=== PATIENT | female | born 1950 | race Caucasian/White ===

== ENCOUNTER 2018-01-01 20:39 | Emergency (ER) | payer MEDICARE, OTHER ==
[~2018-01-01] VITALS: Ht 160 cm; Wt 65.8 kg
[2018-01-01] MEDS ORDERED: SYNTHROID100 MC1 PO (20:47)
[2018-01-01 21:23] LABS: ABSOLUTE EOSINOPHILS 0.1 thou/uL (0.0-0.7); ABSOLUTE LYMPHOCYTES 1.6 thou/uL (0.8-5.3); ABSOLUTE MONOCYTES 0.5 thou/uL (0.0-1.2); ABSOLUTE NEUTROPHILS 5.4 thou/uL (1.6-8.1); BASOPHILS 0.5 %; EOSINOPHILS 1.2 %; HEMATOCRIT 39.7 % (37.0-47.0); HEMOGLOBIN 13.3 gm/dL (12.0-15.0); LYMPHOCYTES 20.8 %; MCH 30.4 pg (26.0-34.0); MCHC 33.6 g/dL (28.0-37.0); MCV 90.5 fL (80.0-100.0); MONOCYTES 6.8 %; MPV 9.4 fl. (7.2-11.1); NUCLEATED RBCS 0 /100WBC; PLATELET COUNT* 191 thou/uL (150-400); POLYS 70.7 %; RBC 4.38 mil/uL (4.20-5.00); RDW-CV 13.1 % (10.5-14.5); WBC 7.6 thou/uL (4.0-11.0)
[2018-01-01 21:30] LABS: ANION GAP 8 mmol/L (7-16); BUN 13 mg/dL (7-18); CALCIUM 9.8 mg/dL (8.5-10.1); CHLORIDE 102 mmol/L (98-107); CO2 31 mmol/L (21-32); CREATININE 0.8 mg/dL (0.6-1.3); GLUCOSE 118 mg/dL (70-99); POTASSIUM 3.5 mmol/L (3.5-5.1); SODIUM 141 mmol/L (136-145)
[2018-01-01 21:32] LABS: URINE BILIRUBIN NEGATIVE (Negative); URINE BLOOD NEGATIVE (Negative); URINE CLARITY CLEAR; URINE COLOR YELLOW; URINE GLUCOSE-RANDOM NEGATIVE (Negative); URINE KETONES NEGATIVE (Negative); URINE LEUKOCYTES 2+ (Negative); URINE NITRITE NEGATIVE (Negative); URINE PROTEIN NEGATIVE (Negative); URINE UROBILINOGEN 0.2 E.U./dl (0.2-1.0)
[2018-01-01 21:37] LABS: SQUAMOUS 0-3 Few /LPF (0-3); URINE RBC 3-10 Few /HPF (0-2); WBC CLUMPS Few (None Seen)
[2018-01-01 21:38] LABS: BACTERIA >30 Many /HPF (None Seen); CASTS None Seen /LPF (None Seen); CRYSTALS None Seen /LPF (None Seen); MUCUS 0-3 Light strn/LPF (None Seen)
[2018-01-01 21:40] LABS: ALKALINE PHOSPHATASE 43 U/L (46-116); LIPASE 114 U/L (73-393); SGOT 19 U/L (15-37); SGPT 23 U/L (30-65); TOTAL BILIRUBIN 0.2 mg/dL (<0.1-1.0); TOTAL PROTEIN 7.7 g/dL (6.4-8.2); TROPONIN-I LEVEL <0.06 ng/mL (<0.06)
[2018-01-01] MEDS ORDERED: ONDANSETRON HCL4 M2 PO (23:03)
[2018-01-01] MEDS ORDERED: NABUMETONE 750750 M1 PO (23:03)
[2018-01-01] MEDS ORDERED: NORCO 5-325 TA1 EACH PO (23:03)
[2018-01-01] MEDS ORDERED: MACROBID 100 M100 M2 PO (23:06)
[2018-01-01 23:25] VITALS: BP 119/76
--- NOTE | 2018-01-02 10:20 | EKG ---
[place] [address] ELECTROCARDIOGRAM REPORT Name: HARIKA FERRER Room: 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: : 1950 Requested By: Desiree Askew Order Number: [id number] MD: Dewey Crane Measurements Intervals [place] Rate: 65 P: 51 CA: 157 QRS: 49 QRSD: 89 T: 50 QT: 411 QTc: 428 Interpretive Statements Sinus rhythm Compared to ECG 05/12/2008 21:31:56 Myocardial infarct finding no longer present Right superior axis no longer present Electronically Signed On 01-02-2018 10:20:21 CDT by Dewey Crane [email or web address] <ELECTRONICALLY SIGNED> By: Dewey Crane MD, [facility] 01/02/18 1020 50 50 Dewey Crane MD, FACC /EPI
== END 2018-01-01 23:26 | disposition home or self-care (01) ==
LOC: M.ERS 20:39
PROVIDERS: Nurse Practitioner Family
DX: R10.13 Epigastric pain (principal); N39.0 Urinary tract infection, site not specified; Z88.0 Allergy status to penicillin; Z88.2 Allergy status to sulfonamides

== ENCOUNTER 2019-03-07 09:45 | Inpatient (IN) | payer MEDICARE, OTHER ==
[~2019-03-07] VITALS: Ht 160 cm; Wt 66.7 kg
[~2019-03-07 09:45] MED LIST: CIPRO500 MG PO; FLAGYL500 M1 PO; MACROBID 100 M100 M2 PO; NABUMETONE 750750 M1 PO; NORCO 5-325 TA1 EACH PO; NYSTATIN100000 UNI SW&SWALLOW; ONDANSETRON HCL4 M2 PO; SYNTHROID100 MC1 PO
[2019-03-07 09:47] VITALS: BP 113/56
[2019-03-07 10:07] LABS: HEMATOCRIT 40.6 % (37.0-47.0); HEMOGLOBIN 13.6 gm/dL (12.0-15.0); MCH 30.4 pg (26.0-34.0); MCHC 33.6 g/dL (28.0-37.0); MCV 90.7 fL (80.0-100.0); MPV 9.6 fl. (7.2-11.1); NUCLEATED RBCS 0 /100WBC; PLATELET COUNT* 173 thou/uL (150-400); RBC 4.48 mil/uL (4.20-5.00); RDW-CV 13.4 % (10.5-14.5); WBC 8.9 thou/uL (4.0-11.0)
--- NOTE | 2019-03-07 10:07 | NUR ---
IN CT AT THIS TIME
[2019-03-07 10:13] LABS: CALCIUM 9.1 mg/dL (8.5-10.1); CREATININE 0.9 mg/dL (0.6-1.3)
[2019-03-07 10:17] LABS: ALBUMIN 3.7 g/dL (3.4-5.0); TOTAL BILIRUBIN 0.8 mg/dL (<0.1-1.0); TOTAL PROTEIN 7.5 g/dL (6.4-8.2)
[2019-03-07 10:45] LABS: ABSOLUTE LYMPHOCYTES 0.1 thou/uL (0.8-5.3); ABSOLUTE MONOCYTES 0.2 thou/uL (0.0-1.2); ABSOLUTE NEUTROPHILS 8.6 thou/uL (1.6-8.1); PLATELET ESTIMATE ADEQUATE
[2019-03-07 11:12] LABS: INFLUENZA A ANTIGEN Negative (Negative); INFLUENZA B ANTIGEN Negative (Negative)
[2019-03-07 11:51] VITALS: BP 101/53
[2019-03-07] MEDS ORDERED: PROBIOTIC1 EAC7 PO (14:37)
[2019-03-07 16:26] VITALS: BP 101/50
--- NOTE | 2019-03-07 18:20 | NUR ---
PT ARRIVED TO UNIT AT APPROX 1200, REPORT TAKEN FROM RENUKA BETANCOURT. PT A&O X4, LETHARGIC, DENIES ANY N/V, NIH=0, PT STEADY ON FEET BUT WEAK, REQUIRING ASSISSTANCE, FULL ASSESSMENT CHARTED. PT ORIENTED TO CALL LIGHT AND ROOM, HOURLY ROUNDING COMPLETED.
[2019-03-07 19:30] VITALS: BP 91/41
[2019-03-08] VITALS: BP 100/46
[2019-03-08 02:47] LABS: URINE BILIRUBIN NEGATIVE (Negative); URINE BLOOD TRACE (Negative); URINE CLARITY CLEAR; URINE COLOR YELLOW; URINE GLUCOSE-RANDOM NEGATIVE (Negative); URINE KETONES NEGATIVE (Negative); URINE LEUKOCYTES-REFLEX TRACE (Negative); URINE NITRITE-REFLEX NEGATIVE (Negative); URINE PROTEIN NEGATIVE (Negative); URINE UROBILINOGEN 0.2 E.U./dl (0.2-1.0)
[2019-03-08 02:57] LABS: BACTERIA-REFLEX >30 Many /HPF (None Seen); CASTS None Seen /LPF (None Seen); CRYSTALS None Seen /LPF (None Seen); MUCUS 4-6 Moderate strn/LPF (None Seen); SQUAMOUS 0-3 Few /LPF (0-3); TRANSITIONAL EPITHEL CELL 0-3 Few /LPF (None Seen); URINE RBC 3-10 Few /HPF (0-2); WBC CLUMPS Few (None Seen)
[2019-03-08 04:00] VITALS: BP 95/56
[2019-03-08 05:16] LABS: ALBUMIN 2.6 g/dL (3.4-5.0); ALKALINE PHOSPHATASE 32 U/L (46-116); ANION GAP 9 mmol/L (7-16); BUN 9 mg/dL (7-18); CALCIUM 7.6 mg/dL (8.5-10.1); CHLORIDE 107 mmol/L (98-107); CHOLESTEROL 131 mg/dL (<200); CO2 24 mmol/L (21-32); CREATININE 0.6 mg/dL (0.6-1.3); GLUCOSE 107 mg/dL (70-99); HDL CHOLESTEROL 55 mg/dL (>40); LDL CHOLESTEROL 70 mg/dL (<100); POTASSIUM 3.2 mmol/L (3.5-5.1); SERUM ASSESSMENT CLEAR; SGOT 17 U/L (15-37); SGPT 16 U/L (30-65); SODIUM 140 mmol/L (136-145); TC:HDL 2.4 Ratio (Not establshd); TOTAL BILIRUBIN 0.5 mg/dL (<0.1-1.0); TOTAL PROTEIN 5.7 g/dL (6.4-8.2); TRIGLYCERIDE 30 mg/dL (<150); VLDL 6 mg/dL (<40)
--- NOTE | 2019-03-08 06:44 | NUR ---
PT REPORTS INC CONGESTION THOUGHOUT THE NIGHT, WILL PREPORT TO ONCOMMING SHIFT. FEVER AT START OF SHIFT GIVEN MEDICATION WITH IMPROVED RESULTS. SEE MAR. SEE CHARTING. HOURLY ROUNDING FOR SAFETY. FALL PRECAUIOTN IN PLACE. PROGRESSING TOWARDS GOALS.
[2019-03-08 08:00] VITALS: BP 107/59
[2019-03-08 09:45] LABS: HEMATOCRIT 31.4 % (37.0-47.0); MCH 30.9 pg (26.0-34.0); MCHC 33.7 g/dL (28.0-37.0); MCV 91.5 fL (80.0-100.0); MPV 10.4 fl. (7.2-11.1); NUCLEATED RBCS 0 /100WBC; PLATELET COUNT* 125 thou/uL (150-400); RBC 3.44 mil/uL (4.20-5.00); RDW-CV 13.6 % (10.5-14.5); WBC 5.2 thou/uL (4.0-11.0)
[2019-03-08 09:52] LABS: HEMOGLOBIN 10.6 gm/dL (12.0-15.0)
[2019-03-08 10:15] LABS: ABSOLUTE LYMPHOCYTES 0.2 thou/uL (0.8-5.3); ABSOLUTE MONOCYTES 0.1 thou/uL (0.0-1.2); ABSOLUTE NEUTROPHILS 4.9 thou/uL (1.6-8.1)
[2019-03-08 10:16] LABS: ANISOCYTOSIS 1+; PLATELET ESTIMATE DECREASED; POIKILOCYTOSIS 1+
--- NOTE | 2019-03-08 10:44 | EKG ---
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 : 1950 Requested By: Siva Stokes Order Number: [id number] MD: Dewey Crane Measurements Intervals [place] Rate: 91 P: 43 ND: 148 QRS: 14 QRSD: 85 T: 36 QT: 357 QTc: 440 Interpretive Statements Sinus rhythm Abnormal R-wave progression, early transition Compared to ECG 03/25/2018 17:56:53 No significant changes Electronically Signed On 03-08-2019 10:43:38 [employer] by Dewey Crane [email or web address] <ELECTRONICALLY SIGNED> By: Dewey Crane MD, [facility] 03/08/19 1043 1021 1021 Dewey Crane MD, [facility] /EPI
[2019-03-08 11:33] VITALS: BP 114/56
--- NOTE | 2019-03-08 11:58 | NUR ---
Pt is A&O. Resides at home with . Independent and active. No DME. No hx of HH or SNF. Goal is home at co. No needs anticipated. Following.
--- NOTE | 2019-03-08 12:16 | 2DMMODE ---
[place] [address] 2 D/M-MODE ECHOCARDIOGRAM Name: HARIKA FERRER Room: [address] IN .R.#: [id number] Admission: 03/07/19 Attend Phys: Christina Yan, Discharge: Date of : 54 Date of Service: 03/08/19 1215 Report #: [id number] THIS REPORT FOR: //name// APPROVED REPORT Study performed: 03/08/2019 10:13:26 EXAM: Comprehensive 2D, Doppler, and color-flow Echocardiogram Patient Location: Bedside BSA: 1.64 HR: 81 bpm BP: 95/56 mmHg Other Information Study Quality: Good Indications Weakness and Fall 2D Dimensions IVSd: 17.24 (7-11mm) LVOT Diam: 19.57 (18-24mm) LVDd: 36.70 mm PWd: 11.77 (7-11mm) Ascending Ao: 26.88 (22-36mm) LVDs: 22.07 (25-40mm) Aortic Root: 23.80 mm Volumes Left Atrial Volume (Systole) LA ESV Index: 12.80 mL/m2 Aortic Valve AoV Peak Wilfred.: 1.22 m/s AO Peak Gr.: 5.91 mmHg LVOT Max P.65 mmHg AO Mean Gr.: 2.96 mmHg LVOT Mean P.31 mmHg LVOT Max V: 1.38 m/s AO V2 VTI: 21.54 cm LVOT Mean V: 0.82 m/s ABEL (VTI): 3.07 cm2 LVOT V1 VTI: 22.00 cm Mitral Valve E/A Ratio: 1.41 MV Decel. Time: 188.55 ms MV E Max Wilfred.: 0.98 m/s MV PHT: 54.68 ms MVA (PHT): 4.02 [place]2 [place] [address] 2 D/M-MODE ECHOCARDIOGRAM Name: HARIKA FERRER Room: [address] IN [facility]#: [id number] Admission: 03/07/19 Attend Phys: Christina Yan, Discharge: Date of : 54 Date of Service: 03/08/19 1215 Report #: [id number] TDI E/Lateral E': 7.54 E/Medial E': 8.17 Medial E' Wilfred.: 0.12 m/s Lateral E' Wilfred.: 0.13 m/s Pulmonary Valve PV Peak Wlifred.: 0.99 m/s PV Peak Gr.: 3.89 mmHg Tricuspid Valve RAP Estimate: 5.00 mmHg TR Peak Gr.: 31.88 mmHg RVSP: 36.88 mmHg PA Pressure: 36.88 mmHg Left Ventricle The left ventricle is normal size. There is normal LV segmental wall motion. Mild concentric left ventricular hypertrophy. Left ventricular systolic function is normal. The left ventricular ejection fraction is within the normal range. LVEF is 60-65%. Right Ventricle The right ventricle is normal size. The right ventricular systolic function is normal. Atria The left atrium size is normal. The right atrium size is normal. Aortic Valve The aortic valve is normal in structure. No aortic regurgitation is present. There is no aortic valvular stenosis. Mitral Valve The mitral valve is normal in structure. There is no mitral valve regurgitation noted. No evidence of mitral valve stenosis. Tricuspid Valve The tricuspid valve is normal in structure. Trace tricuspid regurgitation. Pulmonic Valve Pulmonic valve is not well visualized. There is no pulmonic valvular regurgitation. Great Vessels The aortic root is normal in size. IVC [place] [address] 2 D/M-MODE ECHOCARDIOGRAM Name: HARIKA FERRER Room: [address]#: [id number] Admission: 03/07/19 Attend Phys: Christina Yan, Discharge: Date of : 54 Date of Service: 03/08/19 1215 Report #: [id number] collapses >50% with inspiration. Pericardium There is no pericardial effusion. <Conclusion> Mild concentric left ventricular hypertrophy. LVEF is 60-65%. <ELECTRONICALLY SIGNED> By: Dewey Crane MD, FACC 03/08/19 1215 14 14 Dewey Crane MD, FACC /INF
--- NOTE | 2019-03-08 19:00 | NUR ---
ASSUMED PT CARE AT 0700, VSS, RA, PT C/O LOOSE STOOLS, ORDER FOR STOOL SAMPLE FOR POSSIBLE CDIFF, ISOLATION MAINTAINED, PT REMAINS FEBRILE THIS SHIFT, FULL ASSESSMENT CHARTED. HOURLY ROUNDING COMPLETED.
[2019-03-08 19:50] VITALS: BP 106/65
[2019-03-09] VITALS: BP 103/54
[2019-03-09 04:00] VITALS: BP 114/60
[2019-03-09 05:15] LABS: ABSOLUTE EOSINOPHILS 0.1 thou/uL (0.0-0.7); ABSOLUTE LYMPHOCYTES 0.6 thou/uL (0.8-5.3); ABSOLUTE MONOCYTES 0.4 thou/uL (0.0-1.2); ABSOLUTE NEUTROPHILS 3.5 thou/uL (1.6-8.1); BASOPHILS 0.3 %; EOSINOPHILS 2.3 %; HEMATOCRIT 28.8 % (37.0-47.0); HEMOGLOBIN 10.1 gm/dL (12.0-15.0); LYMPHOCYTES 13.1 %; MCH 31.3 pg (26.0-34.0); MCV 89.6 fL (80.0-100.0); MONOCYTES 8.7 %; MPV 9.8 fl. (7.2-11.1); NUCLEATED RBCS 0 /100WBC; PLATELET COUNT* 113 thou/uL (150-400); POLYS 75.6 %; RBC 3.22 mil/uL (4.20-5.00); RDW-CV 13.5 % (10.5-14.5); WBC 4.6 thou/uL (4.0-11.0)
[2019-03-09 08:00] VITALS: BP 111/63
[2019-03-09 11:32] VITALS: BP 121/65
--- NOTE | 2019-03-09 13:39 | NUR ---
Spoke with , Pt continues to have fevers and diarrhea, to reeval tomorrow for dispo
[2019-03-09 17:22] VITALS: BP 109/64
[2019-03-09 19:40] VITALS: BP 120/64
[2019-03-10] VITALS: BP 122/70
[2019-03-10 02:06] LABS: GLYCOHEMOGLOBIN (HGB A1C) 5.7 % (4.8-5.6)
[2019-03-10 04:00] VITALS: BP 104/56
[2019-03-10 04:31] LABS: ABSOLUTE EOSINOPHILS 0.2 thou/uL (0.0-0.7); ABSOLUTE LYMPHOCYTES 0.9 thou/uL (0.8-5.3); ABSOLUTE MONOCYTES 0.4 thou/uL (0.0-1.2); ABSOLUTE NEUTROPHILS 2.6 thou/uL (1.6-8.1); BASOPHILS 0.8 %; EOSINOPHILS 3.8 %; HEMATOCRIT 28.1 % (37.0-47.0); HEMOGLOBIN 9.9 gm/dL (12.0-15.0); LYMPHOCYTES 21.9 %; MCH 31.1 pg (26.0-34.0); MCHC 35.2 g/dL (28.0-37.0); MCV 88.4 fL (80.0-100.0); MONOCYTES 9.3 %; MPV 9.4 fl. (7.2-11.1); NUCLEATED RBCS 0 /100WBC; PLATELET COUNT* 118 thou/uL (150-400); POLYS 64.2 %; RBC 3.18 mil/uL (4.20-5.00); RDW-CV 13.1 % (10.5-14.5)
[2019-03-10 04:51] LABS: CALCIUM 7.9 mg/dL (8.5-10.1); CREATININE 0.5 mg/dL (0.6-1.3); PHOSPHORUS* 2.7 mg/dL (2.5-4.9)
[2019-03-10 05:01] LABS: POTASSIUM 2.9 mmol/L (3.5-5.1)
--- NOTE | 2019-03-10 06:39 | NUR ---
VSS. SEE MAR. SEE CHARTING. HOURLY ROUNDING FOR SAFETY.
[2019-03-10 07:55] VITALS: BP 124/61
[2019-03-10 11:42] VITALS: BP 114/74
--- NOTE | 2019-03-10 18:14 | NUR ---
PT IS A/O X4,VSS,PT MADE M/S STATUS.PT ON ROOM AIR.PROGRESSING TOWARDS GOALS.NO C/O PAIN.DIARRHEA SLOWING WITH THE IMMODIUM.POTASSIUM REPLACED.PT TOLERATING DIET WELL.INFORMED OF PLAN OF CARE AND COMMUNICATES UNDERSTANDING.HOURLY ROUNDING COMPELTED FOR PT SAFETY.CALL LIGHT AND FALL PRECAUTIONS IN PLACE.WILL CONTINUE TO MONITOR FOR DURATION OF SHIFT.
[2019-03-10 20:00] VITALS: BP 104/61
[2019-03-11] VITALS: BP 93/51
[2019-03-11 04:49] LABS: ABSOLUTE EOSINOPHILS 0.2 thou/uL (0.0-0.7); ABSOLUTE LYMPHOCYTES 0.8 thou/uL (0.8-5.3); ABSOLUTE MONOCYTES 0.4 thou/uL (0.0-1.2); ABSOLUTE NEUTROPHILS 2.6 thou/uL (1.6-8.1); BASOPHILS 0.5 %; EOSINOPHILS 5.2 %; HEMOGLOBIN 10.4 gm/dL (12.0-15.0); LYMPHOCYTES 20.7 %; MCH 30.8 pg (26.0-34.0); MCHC 34.6 g/dL (28.0-37.0); MONOCYTES 10.5 %; MPV 9.6 fl. (7.2-11.1); NUCLEATED RBCS 0 /100WBC; PLATELET COUNT* 149 thou/uL (150-400); POLYS 63.1 %; RBC 3.37 mil/uL (4.20-5.00); RDW-CV 13.3 % (10.5-14.5); WBC 4.1 thou/uL (4.0-11.0)
[2019-03-11 05:00] LABS: % SATURATION 18 % (20-39); IRON 38 ug/dL (50-175)
[2019-03-11 05:01] LABS: CALCIUM 8.6 mg/dL (8.5-10.1); CREATININE 0.6 mg/dL (0.6-1.3); POTASSIUM 4.1 mmol/L (3.5-5.1)
[2019-03-11 08:00] VITALS: BP 122/67
[2019-03-11 11:59] LABS: ALBUMIN 2.5 g/dL (3.4-5.0); CALCIUM 8.5 mg/dL (8.5-10.1); CREATININE 0.6 mg/dL (0.6-1.3); POTASSIUM 4.2 mmol/L (3.5-5.1); TOTAL BILIRUBIN 0.3 mg/dL (<0.1-1.0); TOTAL PROTEIN 5.8 g/dL (6.4-8.2)
[2019-03-11] MEDS ORDERED: LEVAQUIN 750 M750 MG PO (13:38)
[2019-03-11] MEDS ORDERED: METRONIDAZOLE500 M4 PO (13:40)
[2019-03-11 13:42] VITALS: BP 122/67
--- NOTE | 2019-03-11 14:24 | NUR ---
ASSUMED PT CARE AT 0700, PT A&O X4, VSS, RA, UP AD [place], FULL ASSESSMENT CHARTED, MED SURG STATUS. PT DISCHARGED WITH GRANDDAUGHTER AT APPROX 1415, EDUCATED ON ALL DISCHARGE INSTRUCTIONS INCLUDING FOLLOW UP APPOINTMENTS AND MEDICATIONS, IV REMOVED, HOURLY ROUNDING COMPLETED.
== END 2019-03-11 14:24 | disposition home or self-care (01) | DRG 178 ==
LOC: M.ERS 09:45 → M.TBA-ER 10:50 → M.2W 10:50
PROVIDERS: Emergency Medicine Emergency Medical Services; Family Medicine; Internal Medicine; ADMIT Internal Medicine
DX: J15.6 Pneumonia due to other Gram-negative bacteria (principal); E44.0 Moderate protein-calorie malnutrition; N39.0 Urinary tract infection, site not specified; I95.1 Orthostatic hypotension; R29.6 Repeated falls; E03.9 Hypothyroidism, unspecified; K52.9 Noninfective gastroenteritis and colitis, unspecified; E87.6 Hypokalemia; E86.0 Dehydration; E83.42 Hypomagnesemia; E53.8 Deficiency of other specified B group vitamins; Z88.0 Allergy status to penicillin; Z82.49 Family history of ischemic heart disease and other diseases of the circulatory system; Z88.2 Allergy status to sulfonamides; Z79.2 Long term (current) use of antibiotics; Z79.891 Long term (current) use of opiate analgesic; Z79.899 Other long term (current) drug therapy; Z81.8 Family history of other mental and behavioral disorders; Z68.26 Body mass index [BMI] 26.0-26.9, adult